=== PATIENT | male | born 1995 | race Caucasian/White ===

== ENCOUNTER 2023-07-31 10:02 | Emergency (ER) | payer BC, SELFPAY ==
[2023-07-31 10:12] VITALS: BP 111/88
--- NOTE | 2023-07-31 10:37 | ED.GENMED ---
History of Present Illness
General
Chief Complaint: Skin Problem
Source: patient
Exam Limitations: none
Time Seen by Provider: 07/31/23 10:17
Nursing documentation reviewed up to this point in time: agreed with
Travel History
Have you had any contact with someone who has COVID-19?: No
Do you have any symptoms of coronavirus? Fever > 100 degrees, chills, cough, shortness of breath, sore throat, loss of taste or smell, muscle aches, or headache?: No
History of Present Illness
History of Present Illness:
27-year-old male past medical history of anxiety depression presenting to the emergency department after his left palm got poked with a staple when opening a [employer] package. Has small mount of discomfort at the time but now is noticing creasing
redness that streaking into his wrist. Has mild pain to the area no fevers no systemic symptoms. Denies any history of infectious issues.
Past History
Past History
ED Past Medical History: GERD and Psychiatric (anxiety)
ED Past Surgical History: None
Social History
Tobacco: Smoker
Alcohol: Daily
Drug: None
Personal: Single
Living: with family
Employment: Employed
Family History
Family History: Other (Anxiety); Negative Sudden
Review of Systems
Review of Systems
Allergies reviewed?: Yes
All Other Systems: ROS reviewed and negative except as documented in HPI and ROS
Phy Exam
Physical Exam
Physical Exam:
GENERAL: Alert , in no apparent distress
EYE: pupils equal and reactive
NECK: Supple, no significant adenopathy.
ENT: o/p clr, mmm.
CARDIAC: Regular rate and rhythm .
LUNGS: Clear breath sounds bilaterally, no acute respiratory distress, no wheezes/rales/rhonchi
ABDOMEN: Soft, without focal tenderness, no r/g, no cvat
NEUROLOGICAL: Alert and oriented, no focal neuro deficits
SKIN: Small amount of redness to the left palm at the proximal aspect with small amount of streaking overlying the wrist. Total size roughly 5 cm in length 1 cm in width. Warm and dry, skin intact.
MUSCULOSKELETAL: No edema, well perfused.
PSYCH: Normal and appropriate interaction.
Course
Orders/Labs/Results
Orders:
Orders
07/31/23 10:36
Cephalexin Monohydrate [Keflex] 500 mg PO NOW STA
Vital Signs
Initial and Last Documented VS:
Initial Vital Signs
Temp Pulse Resp BP Pulse Ox
97.5 F 80 16 111/88 98
07/31/23 10:12 07/31/23 10:12 07/31/23 10:12 07/31/23 10:12 07/31/23 10:12
Last Documented Vital Signs
Temp Pulse Resp BP Pulse Ox
97.5 F 80 16 111/88 98
07/31/23 10:12 07/31/23 10:12 07/31/23 10:12 07/31/23 10:12 07/31/23 10:12
MDM/Problems Addressed
MDM/Problems Addressed:
27-year-old male presenting to the emergency department today with concerns of redness swelling creeping into his wrist at location where he was stabbed by a staple yesterday. Denies any systemic symptoms or additional concerns. Mild tenderness to
the area good range of motion of the wrist does not appear consistent with septic arthritis concern for potential secondary infection to the localized cutaneous region started on Keflex advised for close outpatient follow-up. Return precautions
given.
*Critical Care Note
Total Time (30-74mins, 75-104mins- exclusive of procedures): Not Applicable
ED Attending Note
-
Portions of this chart may have been created with voice recognition software.� Occasional wrong word or��sound alike� substitutions may have occurred due to the inherent limitations of voice recognition software.
Discharge Plan
Departure
Patient Disposition: Home (Routine Discharge)
Date of Disposition: 07/31/23
Time of Disposition: 10:44
Patient with high blood pressure during this ER visit?: No
Condition: Good
Covid-19: Not Applicable
Discharge Problem:
Cellulitis
Instructions: Cellulitis (Skin Infection), Adult (DC)
Prescriptions:
New
cephalexin 500 mg capsule
500 mg PO QID 7 Days Qty: 28 0RF
No Action
escitalopram oxalate 20 MG tablet
20 mg PO DAILY
fluticasone propionate 1 SPRAY spray,suspension
1 spray intranasal DAILY Qty: 1 0RF
prednisone 50 mg tablet
50 mg PO DAILY Qty: 5 0RF
albuterol sulfate 90 mcg/actuation HFA aerosol inhaler
2 puff inhalation Q6H PRN (Reason: shortness of breath or wheezing) Qty: 8.5 0RF
Referrals:
NONE,* [Family Provider] -
Activity Restrictions/Additional Instructions:
You came to the emergency department today with concerns of a infection to your left hand. Please take Keflex 4 times daily over the next 7 days keep the area clean covered and return to the emergency department for any worsening, new or concerning
symptoms.
== END 2023-07-31 11:15 | disposition home or self-care (01) ==
LOC: EMR 10:02
PROVIDERS: EMERGENCY PHYSICIAN Emergency Medicine
DX: L03.114 Cellulitis of left upper limb (principal); S61.432A Puncture wound without foreign body of left hand, initial encounter; W45.8XXA Other foreign body or object entering through skin, initial encounter; F17.200 Nicotine dependence, unspecified, uncomplicated; F41.9 Anxiety disorder, unspecified; F32.A Depression, unspecified
CPT/HCPCS: 99282; 90715